=== PATIENT | female | born 1955 | race African-American/Black ===

== ENCOUNTER 2019-03-23 14:45 | Emergency (ER) | payer OTHER | END 2019-03-23 15:35 | disposition home or self-care (01) | LOC: BURERS 14:45 | DX: J11.1 Influenza due to unidentified influenza virus with other respiratory manifestations (principal); E11.40 Type 2 diabetes mellitus with diabetic neuropathy, unspecified | CPT/HCPCS: 87804; 99283 ==

== ENCOUNTER 2019-06-28 17:00 | Emergency (ER) | payer OTHER | END 2019-06-28 17:37 | disposition home or self-care (01) | LOC: BURERS 17:00 | DX: J06.9 Acute upper respiratory infection, unspecified (principal); R03.0 Elevated blood-pressure reading, without diagnosis of hypertension | CPT/HCPCS: 99283 ==

== ENCOUNTER 2020-06-12 13:28 | Emergency (ER) | payer OTHER | END 2020-06-12 14:03 | disposition home or self-care (01) | LOC: BURERS 13:28 | DX: K02.9 Dental caries, unspecified (principal) | CPT/HCPCS: 99283 ==

== ENCOUNTER 2020-10-31 10:27 | Emergency (ER) | payer OTHER ==
[2020-10-31] MEDS ORDERED: Ondansetron ODT 4 MG TAB ONE (10:43)
[2020-10-31] MEDS ORDERED: Meclizine HCl 25 MG TAB ONE (10:43)
== END 2020-10-31 12:05 | disposition home or self-care (01) ==
LOC: BURERS 10:27
DX: R42 Dizziness and giddiness (principal)
CPT/HCPCS: 99283; Q0162